=== PATIENT | male | born 1995 | race Caucasian/White ===

== ENCOUNTER 2019-07-10 18:58 | Emergency (ER) | payer OTHER ==
[~2019-07-10] VITALS: Ht 177.8 cm; Wt 80.3 kg
--- NOTE | 2019-07-10 19:16 | NUR ---
PT CAME IN FOR ON AND OFF TESTICULAR PAIN X 1 MONTH. PT AAOX4, AMBULATORY, VSS, RR EVEN AND UNLABORED ON RA W/ NAD NOTED. PT CONNECTED TO THE MONITOR AND POX
--- NOTE | 2019-07-10 19:20 | NUR ---
URINE COLLECTED AND SENT TO LAB
[2019-07-10 20:01] LABS: APPEARANCE,URINE CLEAR (CLEAR); BILIRUBIN,URINE NEGATIVE (NEGATIVE); BLOOD, URINE NEGATIVE Ery/uL (NEGATIVE); COLOR,URINE YELLOW (YELLOW); KETONES,URINE NEGATIVE (NEGATIVE); LEUKOCYTE ESTERASE ,URINE NEGATIVE (NEGATIVE); NITRITE, URINE NEGATIVE (NEGATIVE); PH,URINE 6.5 (5.0-8.0); PROTEIN,URINE NEGATIVE (NEGATIVE); UGLUCOSE NEGATIVE (NEGATIVE); UROBILINOGEN,URINE 0.2 EU/dL (0.2)
--- NOTE | 2019-07-10 20:02 | NUR ---
ULTRASOUND IN PROGRESS
--- NOTE | 2019-07-10 20:40 | NUR ---
Patient discharged to home in stable condition. Written and verbal after care instructions given. Patient verbalizes understanding of instruction.
[2019-07-10 20:41] VITALS: BP 112/85
== END 2019-07-10 20:41 | disposition home or self-care (01) ==
LOC: ER 19:03
DX: N50.811 Right testicular pain (principal); Z98.890 Other specified postprocedural states
CPT/HCPCS: 76870-TC; 81000-TC; 87491; 87591